=== PATIENT | male | born 1985 | race African-American/Black ===

== ENCOUNTER 2017-11-05 19:34 | Emergency (ER) | payer SELFPAY ==
[~2017-11-05] VITALS: Ht 185.4 cm; Wt 72.0 kg
[2017-11-05] MEDS ORDERED: SODIUM CHLORIDE 0.9% 1,000 ML IV ONE (19:46)
[2017-11-05] MEDS ORDERED: MORPHINE SULFATE 4 MG/ML CPJ (NOT FOR IM USE) IV STA (19:46)
[2017-11-05] MEDS ORDERED: ONDANSETRON HCL 4MG/2ML VIAL IV STA (19:46)
[2017-11-05] MEDS ORDERED: TETANUS, DIPHTHERIA, PERTUSSIS VAC/PF 0.5ML (>7YR OLD) IM ONE (20:00)
[2017-11-05] MEDS ORDERED: CEFAZOLIN 1000MG PREMIX 50 ML IV ONE (20:00)
[2017-11-05 21:39] VITALS: BP 142/61
== END 2017-11-05 22:00 | disposition short-term general hospital (02) ==
LOC: ER 19:34
DX: S80.211A Abrasion, right knee, initial encounter (principal); S20.312A Abrasion of left front wall of thorax, initial encounter; S01.03XA Puncture wound without foreign body of scalp, initial encounter; I60.9 Nontraumatic subarachnoid hemorrhage, unspecified; F12.10 Cannabis abuse, uncomplicated; W33.01XA Accidental discharge of shotgun, initial encounter; Y93.89 Activity, other specified; Y92.89 Other specified places as the place of occurrence of the external cause; Y99.8 Other external cause status
CPT/HCPCS: 70450; 71045; 90715; 96365; 96372; 96375; 99291; J0690; J2270; J2405; J7030; Z7610